=== PATIENT | female | born 1995 | race African-American/Black ===

== ENCOUNTER 2020-04-25 04:44 | Inpatient (IN) ==
[2020-04-25] MEDS ORDERED: Lactated Ringers 1000 ml BAG 1,000 ML IV ONE (05:35)
[2020-04-25] MEDS ORDERED: Penicillin G Potassium IV 5,000,000 UNITS in NS 0.9% 100 ml BAG 100 ML IVPB ONE (05:35)
[2020-04-25 06:37] LABS: Urine Benzodiazepine Screen None Detected (None Detect); Urine Cannabinoids Screen None Detected (None Detect); Urine Opiates Screen None Detected (None Detect)
[2020-04-25 08:51] LABS: ABS Eosinophils 0.4 10^3/ul (0-0.6); ABS Lymphocytes 1.3 10^3/ul (1.0-4.8); ABS Monocytes 0.8 10^3/ul (0-0.8); ABS Neutrophils 8.7 10^3/ul (1.5-7.7); Eosinophil % 3.9 %; Hematocrit 34 % (35-47); Lymphocyte % 11.4 %; Mean Corpuscular HGB Conc 32 g/dL (31-36); Mean Corpuscular Hemoglobin 25 pg (27-31); Mean Corpuscular Volume 78 fL (80-97); Mean Platelet Volume 7.8 fL (7.4-10.4); Nucleated Red Blood Cells % 0.1; Platelet Count 206 10^3/uL (150-450); Red Blood Count 4.35 10^6 /uL (3.70-4.87); Red Cell Distribution Width 18 % (10-15); White Blood Count 11.2 10^3/uL (3.5-10.8)
[2020-04-25] MEDS: Penicillin G Potassium IV 3,000,000 UNITS in NS 0.9% 100 ml BAG 100 ML IVPB SCH ×3 (10:34→18:45)
[2020-04-25] MEDS ORDERED: Glycerin ADULT 2.4 gm SUPP PR PRN (19:28)
[2020-04-25] MEDS ORDERED: Witch Hazel PAD JAR TOPICAL PRN (19:28)
[2020-04-25] MEDS ORDERED: Oxytocin in LR 20 UNITS/1,000 ML BAG IVPB SCH (20:00)
[2020-04-25] MEDS ORDERED: Lactated Ringers 1000 ml BAG 1,000 ML IV SCH (20:00)
[2020-04-26] MEDS: Penicillin G Potassium IV 3,000,000 UNITS in NS 0.9% 100 ml BAG 100 ML IVPB SCH (04:27)
[2020-04-26 11:14] LABS: ABS Eosinophils 0.1 10^3/ul (0-0.6); ABS Lymphocytes 1.6 10^3/ul (1.0-4.8); ABS Neutrophils 8.9 10^3/ul (1.5-7.7); Hematocrit 32 % (35-47); Hemoglobin 10.4 g/dL (12.0-16.0); Lymphocyte % 13.8 %; Mean Corpuscular HGB Conc 33 g/dL (31-36); Mean Corpuscular Hemoglobin 26 pg (27-31); Mean Corpuscular Volume 78 fL (80-97); Mean Platelet Volume 7.4 fL (7.4-10.4); Platelet Count 217 10^3/uL (150-450); Red Blood Count 4.09 10^6 /uL (3.70-4.87); Red Cell Distribution Width 18 % (10-15); White Blood Count 11.7 10^3/uL (3.5-10.8)
[2020-04-27 08:55] VITALS: BP 103/67
== END 2020-04-27 17:38 | disposition home or self-care (01) | DRG 560 ==
LOC: MCHOBOUT 04:44 → MCHOB 05:21
PROVIDERS: ADMIT Midwife; ATTEND Midwife